=== PATIENT | female | born 1975 | race African-American/Black ===

== ENCOUNTER 2020-02-09 10:59 | Emergency (ER) | payer SELFPAY ==
[~2020-02-09] VITALS: Ht 165.1 cm; Wt 114.0 kg
[2020-02-09 11:02] VITALS: BP 153/95
[2020-02-09] MEDS ORDERED: PREDNISONE 20MG TABLET PO STA (11:21)
[2020-02-09] MEDS ORDERED: IPRATROPIUM BROMIDE (0.02%) 0.5MG/2.5ML NEB HHN STA (11:21)
[2020-02-09] MEDS ORDERED: ALBUTEROL (0.083%) 2.5MG/3ML NEB HHN STA (11:21)
== END 2020-02-09 11:48 | disposition home or self-care (01) ==
LOC: ER 10:59
DX: J44.1 Chronic obstructive pulmonary disease with (acute) exacerbation (principal); Z88.8 Allergy status to other drugs, medicaments and biological substances
CPT/HCPCS: 81025; 99283; J7512